=== PATIENT | female | born 1980 | race Caucasian/White ===

== ENCOUNTER 2016-04-21 12:22 | Emergency (ER) | payer MEDICAID, MEDICARE ==
[~2016-04-21] VITALS: Ht 152.4 cm; Wt 63.5 kg
[2016-04-21 14:04] VITALS: BP 125/71
--- NOTE | 2016-04-21 14:08 | PHYS DOC ---
Past Medical History Past Medical History: Other Additional Past Medical Histor: "hole in heart" Past Surgical History: , Hysterectomy, Tubal ligation, Other Additional Past Surgical Histo: ACL and meniscus in left knee Alcohol Use: Occasionally Drug Use: Other Adult General Chief Complaint Chief Complaint: FLU SYMPTOM HPI HPI Patient is a 36 year old female presents emergency Department stating last night she was sent home from work because she was having fever chills generalized body aches and discomfort and shaking. She states that she had vomiting and diarrhea last night although today she is not having any vomiting diarrhea or shaking. She states she still has nasal congestion and feels feverish. She states she has not taken her temperature at home. She denies flu immunizations this year. She does state that she has had sick contact with her roommate. Review of Systems Review of Systems Constitutional: subjective fever and chills Eyes: Denies change in visual acuity, redness, or eye pain [] HENT: nasal congestion denies sore throat [] Respiratory: cough denies shortness of breath [] Cardiovascular: No additional information not addressed in HPI [] GI: Denies abdominal pain, nausea, vomiting, bloody stools or diarrhea [] : Denies dysuria or hematuria [] Musculoskeletal: Denies back pain or joint pain [] Integument: Denies rash or skin lesions [] Neurologic: Denies headache, focal weakness or sensory changes [] Allergies Allergies Allergies Coded Allergies Type Severity Reaction Last Updated Verified Penicillins Allergy Intermediate Anaphylaxis 06/29/13 Yes Physical Exam Physical Exam Constitutional: Well developed, well nourished, no acute distress, non-toxic appearance. [] HENT: Normocephalic, atraumatic, bilateral external ears normal, oropharynx moist, no oral exudates, nose normal. Bilateral tympanic membranes appear to be normal throat with no postnasal drip no erythematous noted no exudate. Eyes: PERRLA, EOMI, conjunctiva normal, no discharge. [] Neck: Normal range of motion, no tenderness, supple, no stridor. [] Cardiovascular:Heart rate regular rhythm, no murmur [] Lungs & Thorax: Bilateral breath sounds clear to auscultation [] Skin: Warm, dry, no erythema, no rash. [] Back: No tenderness Extremities: No tenderness, no cyanosis, no clubbing, ROM intact, no edema. [] Neurologic: Alert and oriented X 3, normal motor function, normal sensory function, no focal deficits noted. [] Psychologic: Affect normal, judgement normal, mood normal. [] Current Patient Data Vital Signs Vital Signs Date Time Temp Pulse Resp B/P Pulse Ox O2 Delivery O2 Flow Rate FiO2 04/21/16 14:04 97.8 80 18 125/71 97 Room Air 97.8 Lab Values Laboratory Tests Test 04/21/16 14:12 Influenza Type A Antigen Negative (NEGATIVE) Influenza Type B Antigen Negative (NEGATIVE) EKG EKG [] Radiology/Procedures Radiology/Procedures [] Course & Med Decision Making Course & Med Decision Making Pertinent Labs and Imaging studies reviewed. (See chart for details) Plan fluids as well as were negative. Patient will be discharged home in stable condition. Recommended Tylenol or ibuprofen for fever chills generalized body aches and discomfort. Plenty of fluids water, propel and gatorade. Signs and symptoms to return to emergency department has been provided. Patient agrees with discharge instructions, treatment regimen and followup recommendations. [] Dragon Disclaimer Dragon Disclaimer This electronic medical record was generated, in whole or in part, using a voice recognition dictation system. Departure Departure Impression: Primary Impression: Viral infection Disposition: 01 HOME, SELF-CARE Condition: STABLE Referrals: NO PCP (PCP) Patient Instructions: Viral Infections, [id number] Additional Instructions: Home to rest Medication as prescribed Tylenol or Ibuprofen for fever, chills or generalized body aches and discomfort. Drink plenty of fluids such as water, propel, or gatorade. You may use cough medication over the counter as needed and directed by manufacture Followup with primary care provider in 5-7 days Return to emergency department as needed for signs and symptoms that become worse. NINOSKA ISAACS NP Apr 21, 2016 14:08
[2016-04-21 15:05] LABS: OBC FLU VALID
== END 2016-04-21 15:25 | disposition home or self-care (01) ==
LOC: ER 12:28
DX: B34.9 Viral infection, unspecified (principal); Z88.0 Allergy status to penicillin
CPT/HCPCS: 87804; 99284

== ENCOUNTER 2016-11-24 16:07 | Emergency (ER) | payer MEDICARE ==
[~2016-11-24] VITALS: Ht 144.8 cm; Wt 68.0 kg
[2016-11-24] MEDS ORDERED: ASPIRIN CHEWABLE 81 MG TABLET. PO ONE (16:45)
--- NOTE | 2016-11-24 16:47 | PHYS DOC ---
Past Medical History Past Medical History: Other Additional Past Medical Histor: Congenital heart defect Past Surgical History: , Hysterectomy, Tubal ligation, Other Additional Past Surgical Histo: ACL and meniscus in left knee, open heart for congenital defect Alcohol Use: Rarely Drug Use: None Adult General Chief Complaint Chief Complaint: CHEST WALL PAIN HPI HPI Patient is a 36 year old F who presents with chest pain. Patient states this morning she developed some central chest pain nonradiating sharp in nature. Patient went to emergency room however the wait was too long therefore came to [facility]. Patient only previous cardiac history was a surgery done at 5 years old to fix of VSD. Patient has a history of using crack cocaine, smoking history, takes no medications for high blood pressure or diabetes or high cholesterol. Patient does not take any control. Patient has no history of a DVT or PE. Patient states her pain in the emergency room is 6 out of 10. Patient states the pain is not worse with exertion. Review of Systems Review of Systems GEN: Denies fevers, chills, sweats HEENT: Denies blurred vision, sore throat CV: chest pain RESP: Denies shortness of air, cough GI: Denies n/v/d NEURO: Denies confusion, dizziness MSK: Denies weakness, joint pain/swelling Current Medications Current Medications Current Medications Medications (Trade) Dose Ordered Sig/Bandar Start Time Stop Time Status Last Admin Dose Admin Aspirin (Children'S Aspirin) 324 mg 1X ONCE 11/24/16 16:45 11/24/16 16:46 DC 11/24/16 16:44 324 MG Allergies Allergies Allergies Coded Allergies Type Severity Reaction Last Updated Verified Penicillins Allergy Intermediate Anaphylaxis 06/29/13 Yes Physical Exam Physical Exam GEN.: No apparent distress. Alert and oriented. HEENT: Head is normocephalic, atraumatic NECK: Supple. LUNGS: CTAB. HEART: RRR, S1, S2 present. Peripheral pulses intact ABDOMEN: Soft, nontender. Positive bowel sounds. EXTREMITIES: Without any cyanosis. NEUROLOGIC: Normal speech, normal tone PSYCHIATRIC: Normal affect, normal mood. SKIN: No ulcerations Current Patient Data Vital Signs Vital Signs Date Time Temp Pulse Resp B/P (MAP) Pulse Ox O2 Delivery O2 Flow Rate FiO2 11/24/16 17:16 80 19 115/63 (80) Room Air 11/24/16 16:46 96 11/24/16 16:19 98.1 98.1 Lab Values Laboratory Tests Test 11/24/16 16:47 White Blood Count 11.0 x10^3/uL (4.0-11.0) Red Blood Count 4.60 x10^6/uL (3.50-5.40) Hemoglobin 14.6 g/dL (12.0-15.5) Hematocrit 42.7 % (36.0-47.0) Mean Corpuscular Volume 93 fL (79-100) Mean Corpuscular Hemoglobin 32 pg (25-35) Mean Corpuscular Hemoglobin Concent 34 g/dL (31-37) Red Cell Distribution Width 12.9 % (11.5-14.5) Platelet Count 162 x10^3/uL (140-400) Neutrophils (%) (Auto) 61 % (31-73) Lymphocytes (%) (Auto) 32 % (24-48) Monocytes (%) (Auto) 5 % (0-9) Eosinophils (%) (Auto) 1 % (0-3) Basophils (%) (Auto) 1 % (0-3) Neutrophils # (Auto) 6.7 x10^3uL (1.8-7.7) Lymphocytes # (Auto) 3.5 x10^3/uL (1.0-4.8) Monocytes # (Auto) 0.6 x10^3/uL (0.0-1.1) Eosinophils # (Auto) 0.2 x10^3/uL (0.0-0.7) Basophils # (Auto) 0.1 x10^3/uL (0.0-0.2) Sodium Level 143 mmol/L (136-145) Potassium Level 3.6 mmol/L (3.5-5.1) Chloride Level 107 mmol/L (98-107) Carbon Dioxide Level 27 mmol/L (21-32) Anion Gap 9 (6-14) Blood Urea Nitrogen 17 mg/dL (7-20) Creatinine 0.7 mg/dL (0.6-1.0) Estimated GFR (Cockcroft-Gault) 94.7 BUN/Creatinine Ratio 24 (6-20) H Glucose Level 90 mg/dL (70-99) Calcium Level 9.2 mg/dL (8.5-10.1) Total Bilirubin 0.4 mg/dL (0.2-1.0) Aspartate Amino Transferase (AST) 17 U/L (15-37) Alanine Aminotransferase (ALT) 20 U/L (14-59) Alkaline Phosphatase 84 U/L (46-116) Troponin I Quantitative < 0.017 ng/mL (0.000-0.055) Total Protein 7.3 g/dL (6.4-8.2) Albumin 3.8 g/dL (3.4-5.0) Albumin/Globulin Ratio 1.1 (1.0-1.7) Laboratory Tests 11/24/16 16:47 Laboratory Tests 11/24/16 16:47 EKG EKG 1622: EKG shows normal sinus rhythm rate of 74 no STEMI[] Radiology/Procedures Radiology/Procedures Chest x-ray NAD[] Course & Med Decision Making Course & Med Decision Making Pertinent Labs and Imaging studies reviewed. (See chart for details) ED course: Patient was seen and examined emergency room cardiac workup was ordered 1816: Patient was reevaluated in the emergency room chest pain is resolved. She feels much better. Recommended short-term follow-up with PCP for an outpatient cardiac workup. Recommended stop smoking and do not use drugs. MDM: After reviewing the chart, CC/HPI/PMH, physical exam, [lab results], [ radiological results], I do not believe the patient having acute SC (Heart score =1), PE (PERC neg), and low risk for thoracic area dissection. Basic the patient 's heart score I believe she can be discharged home with outpatient workup for cardiac. Patient is stable for discharge. Additional verbal discharge instructions were provided to the patient and that if symptoms get worse or any new symptoms arise that are worrisome to the patient she is to return to the emergency room immediately [] Dragon Disclaimer Dragon Disclaimer This electronic medical record was generated, in whole or in part, using a voice recognition dictation system. Departure Departure Impression: Primary Impression: Chest pain Disposition: 01 HOME, SELF-CARE Condition: IMPROVED Referrals: NO PCP (PCP) Patient Instructions: Chest Pain (Nonspecific), [id number] Additional Instructions: Please follow up with your family physician next one to 2 days and return if symptoms increase ANN CHUN DO Nov 24, 2016 16:47
--- NOTE | 2016-11-24 16:53 | EKG ---
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
[2016-11-24 16:54] LABS: BASO # 0.1 x10^3/uL (0.0-0.2); BASO % 1 % (0-3); EOS % 1 % (0-3); HEMATOCRIT 42.7 % (36.0-47.0); HEMOGLOBIN 14.6 g/dL (12.0-15.5); LYMPH # 3.5 x10^3/uL (1.0-4.8); LYMPH % 32 % (24-48); MEAN CORPUSCULAR HEMOGLOBIN 32 pg (25-35); MEAN CORPUSCULAR HGB CONC 34 g/dL (31-37); MEAN CORPUSCULAR VOLUME 93 fL (79-100); MONO % 5 % (0-9); NEUT % 61 % (31-73); PLATELET COUNT 162 x10^3/uL (140-400); RED CELL DISTRIBUTION WIDTH 12.9 % (11.5-14.5)
--- NOTE | 2016-11-24 17:01 | RAD ---
EXAM: CHEST 2 VIEWS History: Chest pain TECHNIQUE: PA and lateral chest radiographs FINDINGS: The cardiomediastinal silhouette is within normal limits. The lungs are clear bilaterally. The costophrenic sulci are clear and well demarcated bilaterally. The osseous structures and soft tissues are unremarkable. IMPRESSION: No radiographic evidence of an acute cardiopulmonary abnormality.
[2016-11-24 17:23] LABS: CALCIUM 9.2 mg/dL (8.5-10.1); CREATININE 0.7 mg/dL (0.6-1.0); GFR 94.7; POTASSIUM 3.6 mmol/L (3.5-5.1)
[2016-11-24 17:26] LABS: ALBUMIN 3.8 g/dL (3.4-5.0); ALBUMIN/GLOBULIN RATIO 1.1 (1.0-1.7); TOTAL BILIRUBIN 0.4 mg/dL (0.2-1.0); TOTAL PROTEIN 7.3 g/dL (6.4-8.2)
[2016-11-24 18:15] VITALS: BP 121/70
== END 2016-11-24 18:40 | disposition home or self-care (01) ==
LOC: ER 16:07
DX: R07.89 Other chest pain (principal); Z87.891 Personal history of nicotine dependence; Z90.710 Acquired absence of both cervix and uterus; Z98.51 Tubal ligation status; Z87.74 Personal history of (corrected) congenital malformations of heart and circulatory system; Z88.0 Allergy status to penicillin
CPT/HCPCS: 36415; 71020; 80053; 84484; 85025; 93005; 99285-25

== ENCOUNTER 2017-06-16 18:40 | Emergency (ER) | payer MEDICARE | END 2017-06-16 19:06 | disposition home or self-care (01) | LOC: ER 18:40 | DX: H66.93 Otitis media, unspecified, bilateral (principal); F17.200 Nicotine dependence, unspecified, uncomplicated; Z98.51 Tubal ligation status; Z88.0 Allergy status to penicillin; Z90.710 Acquired absence of both cervix and uterus; Z95.1 Presence of aortocoronary bypass graft | CPT/HCPCS: 99283 ==

== ENCOUNTER 2017-07-13 10:06 | Emergency (ER) | payer MEDICARE ==
[2017-07-13] MEDS ORDERED: DEXAMETHASONE SOD PHOS 4 MG/ML VIAL IM (10:45)
[2017-07-13] MEDS: DEXAMETHASONE SOD PHOS 4 MG/ML VIAL IM (11:21)
== END 2017-07-13 11:50 | disposition home or self-care (01) ==
LOC: ER 10:06
DX: L50.9 Urticaria, unspecified (principal); Z88.0 Allergy status to penicillin
CPT/HCPCS: 96372; 99283-25; J1100

== ENCOUNTER 2017-09-03 17:16 | Emergency (ER) | payer MEDICARE ==
[2017-09-03] MEDS: predniSONE 20 MG TABLET PO (18:44)
[2017-09-03] MEDS: NAPROXEN 500 MG TABLET PO (18:45)
== END 2017-09-03 18:54 | disposition home or self-care (01) ==
LOC: ER 18:54
DX: G89.29 Other chronic pain (principal); M54.42 Lumbago with sciatica, left side; Z90.710 Acquired absence of both cervix and uterus; Z98.51 Tubal ligation status; Z88.0 Allergy status to penicillin
CPT/HCPCS: 99283; J7512

== ENCOUNTER 2017-10-29 00:34 | Emergency (ER) | payer MEDICARE ==
[~2017-10-29] VITALS: Ht 142.2 cm; Wt 78.8 kg
[~2017-10-29 00:34] MED LIST: AZIT250T PO; CYCL10TA2 PO; DICL50TA4 PO; METH4TAB2 PO
[2017-10-29 00:59] VITALS: BP 125/67
--- NOTE | 2017-10-29 01:19 | PHYS DOC ---
Past Medical History Past Medical History: Depression, Immunosuppression Additional Past Medical Histor: "HOLE IN HEART AT " Past Surgical History: , Hysterectomy, Tubal ligation Additional Past Surgical Histo: OPEN HEART SX, LEFT ACL, LEFT MENISCUS Alcohol Use: Rarely Drug Use: Cocaine Social History Narrative: 15 YEARS CLEAN Adult General Chief Complaint Chief Complaint: "I'm having flulike symptoms" HPI HPI Patient presents to the emergency department for evaluation. She states that for the past 2-3 days, she has had nasal congestion, sore throat, and a left earache. She also reports having some intermittent vomiting and diarrhea. She has had some chills, but no fevers. She has not had any bloody emesis or bloody stools. She denies any chest pain. She has had a nonproductive cough. She denies any chest pain. She does have a history of congenital heart disease, but has not had any coronary disease, and is not taking any cardiac medications. She did recently start medications for depression, but is otherwise taking no medicines. She denies any abdominal pain, dizziness, lightheadedness, headache, numbness, or weakness. There are no alleviating, or exacerbating factors to her symptoms. Review of Systems Review of Systems Constitutional: Denies fever [] Eyes: Denies change in visual acuity, redness, or eye pain [] HENT: Reports nasal congestion and sore throat [] Respiratory: Denies pleuritic pain or shortness of breath [] Cardiovascular: The patient denies any shortness of breath, chest pain, palpitations, or orthopnea [] GI: Denies abdominal pain, bloody stools or bloody emesis[] : Denies dysuria or hematuria [] Musculoskeletal: Denies back pain or joint pain [] Integument: Denies rash or skin lesions [] Neurologic: Denies headache, focal weakness or sensory changes [] Endocrine: Denies polyuria or polydipsia [] All other systems were reviewed and found to be within normal limits, except as documented in this note. Allergies Allergies Allergies Coded Allergies Type Severity Reaction Last Updated Verified Penicillins Allergy Intermediate Anaphylaxis 06/29/13 Yes Physical Exam Physical Exam PHYSICAL EXAM: CONSTITUTIONAL: Well developed, well nourished HEAD: normocephalic, atraumatic EENT: PERRL, EOMI. Conjunctivae normal color, sclerae non-icteric; moist mucous membranes. Tympanic membranes are normal bilaterally. There is no mastoid tenderness. There is mild pharyngeal erythema, without any exudate. The uvula is midline. There is no edema. There is mildly tender submandibular lymphadenopathy. The larynx is nontender. NECK: Supple, non-tender; no meningismus. LUNGS: Lungs CTA, breathing even and unlabored. Normal air movement. HEART: Regular rate and rhythm, no murmur CHEST: No deformity; non-tender ABDOMEN: The abdomen is soft, and non-tender, no masses or bruits. EXTREM: Normal ROM; no deformity, no calf tenderness. Normal pulses palpable in all extremities. There is no pedal edema. SKIN: No rash; no diaphoresis NEURO: Alert; normal speech and cognition; CN's grossly intact; strength grossly intact without focal deficit. BACK: No CVA TTP. Current Patient Data Vital Signs Vital Signs Date Time Temp Pulse Resp B/P (MAP) Pulse Ox O2 Delivery O2 Flow Rate FiO2 10/29/18 00:59 98.7 99 22 125/67 (86) 98 Room Air 98.7 EKG EKG [] Radiology/Procedures Radiology/Procedures [] Course & Med Decision Making Course & Med Decision Making Bedside rapid strep is negative.[] 1:35 AM:Patient remains stable. I discussed test results, the need for close follow-up, use of [id number] analgesics, and return precautions Dragon Disclaimer Dragon Disclaimer This electronic medical record was generated, in whole or in part, using a voice recognition dictation system. Departure Departure Impression: Primary Impression: Upper respiratory infection Additional Impression: Viral syndrome Disposition: 01 HOME, SELF-CARE Condition: STABLE Referrals: NO PCP (PCP) Patient Instructions: Upper Respiratory Infection, Adult, Viral Syndrome Additional Instructions: Use the provided resources to establish care with a primary care provider Problem Qualifiers ABENA ELY MD Oct 29, 2017 01:19
== END 2017-10-29 01:40 | disposition home or self-care (01) ==
LOC: ER 00:34
DX: J06.9 Acute upper respiratory infection, unspecified (principal); B34.9 Viral infection, unspecified; H92.02 Otalgia, left ear; R11.10 Vomiting, unspecified; R19.7 Diarrhea, unspecified; Z98.890 Other specified postprocedural states; Z88.0 Allergy status to penicillin
CPT/HCPCS: 87070; 87880; 99283

== ENCOUNTER 2018-01-07 23:51 | Emergency (ER) | payer MEDICARE ==
[~2018-01-07] VITALS: Ht 165.1 cm; Wt 78.5 kg
[2018-01-08 00:04] VITALS: BP 123/80
[2018-01-08] MEDS ORDERED: CYCL10TA2 PO (00:37)
[2018-01-08] MEDS ORDERED: DICL50TA4 PO (00:37)
[2018-01-08] MEDS ORDERED: METH4TAB2 PO (00:37)
--- NOTE | 2018-01-08 00:37 | PHYS DOC ---
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 Denies any numbness or tingling to bilateral lower extremities. Denies any loss of bowel bladder function. She states she has been following up with her own PCP for chronic low back pain. She states she is currently free of illegal drug use and does not want any narcotics for her pain. Review of Systems Review of Systems Constitutional: Denies fever or chills [] GI: Denies abdominal pain, nausea, vomiting, bloody stools or diarrhea [] : Denies dysuria or hematuria [] Musculoskeletal: Reports low back pain Integument: Denies rash or skin lesions [] Neurologic: Denies headache, focal weakness or sensory changes [] All other systems were reviewed and found to be within normal limits, except as documented in this note. Current Medications Current Medications Current Medications Medications (Trade) Dose Ordered Sig/Bandar Start Time Stop Time Status Last Admin Dose Admin Cyclobenzaprine HCl (Flexeril) 10 mg 1X ONCE 01/08/18 01:00 01/08/18 01:01 Naproxen (Naprosyn) 500 mg 1X ONCE 01/08/18 01:00 01/08/18 01:01 Prednisone (Prednisone) 50 mg 1X ONCE 01/08/18 01:00 01/08/18 01:01 Allergies Allergies Allergies Coded Allergies Type Severity Reaction Last Updated Verified Penicillins Allergy Intermediate Anaphylaxis 06/29/13 Yes Physical Exam Physical Exam Constitutional: Well developed, well nourished, no acute distress, non-toxic appearance. [] Abdomen: Bowel sounds normal, soft, no tenderness, no masses, no pulsatile masses. [] Skin: Warm, dry, no erythema, no rash. [] Back: Slight tenderness on palpation of the left SI joint, no midline lumbar spine tenderness, no CVA tenderness. Positive straight leg raise at approximately 40 to the left side. Extremities: No tenderness, no cyanosis, no clubbing, ROM intact, no edema. [] Neurologic: Alert and oriented X 3, normal motor function, normal sensory function, no focal deficits noted. [] Psychologic: Affect normal, judgement normal, mood normal. [] EKG EKG [] Radiology/Procedures Radiology/Procedures [] Course & Med Decision Making Course & Med Decision Making Pertinent Labs and Imaging studies reviewed. (See chart for details) This is a 37-year-old female patient presenting to the ED today with pain consistent with sciatica. Patient was discharged with diclofenac, cyclobenzaprine, Medrol Dosepak. Heat recommended to the lumbar spine. Follow- up with PCP as well as pain clinic doctor provided a soon as she can. She does not have any cauda equina syndrome symptoms. She has known history of low back pain as well as DJD. Dragon Disclaimer Dragon Disclaimer This electronic medical record was generated, in whole or in part, using a voice recognition dictation system. Departure Departure Impression: Primary Impression: Chronic sciatica of left side Disposition: HOME, SELF-CARE Condition: STABLE Referrals: NO PCP (PCP) BULL HELLER MD follow up in the course of this week or next week Patient Instructions: Sciatica, [id number] Additional Instructions: You were evaluated in the emergency room with pain suspicious of sciatica. Take the prescribed medications as ordered. Apply heat to your low back as well as the affected areas. Elevate the affected extremity as tolerated. Follow-up with your primary care doctor as well as the pain clinic doctor provided in the course of this week or next week. Scripts Cyclobenzaprine Hcl (CYCLOBENZAPRINE HCL) 10 Mg Tablet 1 TAB PO TID, #30 TAB Prov: JULIAEvelynKEVIN JAXSON 01/08/18 Diclofenac Sodium (DICLOFENAC SODIUM) 50 Mg Tablet.dr 1 TAB PO BID, #60 TAB 1 Refill Prov: KEVIN BECERRA JAXSON 01/08/18 Methylprednisolone (MEDROL) 4 Mg Tab.ds.pk 1 PKG PO UD, #1 PKG Prov: HERNANKEVIN HEALTH RECORD TECHNICIAN 01/08/18 JADEMARILEEKEVIN PURI Jan 08, 2018 00:37
[2018-01-08] MEDS ORDERED: CYCLOBENZAPRINE 10 MG TABLET. PO ONE (01:00)
[2018-01-08] MEDS ORDERED: predniSONE 20 MG TABLET PO ONE (01:00)
[2018-01-08] MEDS ORDERED: NAPROXEN 500 MG TABLET PO ONE (01:00)
== END 2018-01-08 00:52 | disposition home or self-care (01) ==
LOC: ER 23:51
DX: G89.29 Other chronic pain (principal); M54.42 Lumbago with sciatica, left side; M25.552 Pain in left hip; M79.605 Pain in left leg; Z90.710 Acquired absence of both cervix and uterus; Z98.51 Tubal ligation status; Z88.0 Allergy status to penicillin
CPT/HCPCS: 99284; J7512

== ENCOUNTER 2019-04-30 16:27 | Emergency (ER) | payer MEDICARE ==
[~2019-04-30] VITALS: Ht 147.3 cm; Wt 72.7 kg
[2019-04-30 16:55] VITALS: BP 124/72
--- NOTE | 2019-04-30 17:00 | PHYS DOC ---
Past Medical History Past Medical History: Arthritis, Depression, Immunosuppression, Sciatica Additional Past Medical Histor: "HOLE IN HEART AT " Past Surgical History: , Hysterectomy, Tubal ligation Additional Past Surgical Histo: OPEN HEART SX, LEFT ACL, LEFT MENISCUS Smoking Status: Current Every Day Smoker Alcohol Use: Rarely Drug Use: Cocaine Adult General Chief Complaint Chief Complaint: RIB PAIN [facility] HPI Patient is a 39 year old female who presents to the ED today complaining of mild to moderate left anterior rib pain that began today after she fell. 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 Patient denies any loss of consciousness. Reports pain on deep breaths. Describes the pain as sharp and intermittent. Review of Systems Review of Systems Constitutional: Denies fever or chills [] Eyes: Denies change in visual acuity, redness, or eye pain [] HENT: Denies nasal congestion or sore throat [] Respiratory: Reports left anterior rib pain. Denies cough or shortness of breath [] Cardiovascular: No additional information not addressed in HPI [] GI: Denies abdominal pain, nausea, vomiting, bloody stools or diarrhea [] : Denies dysuria or hematuria [] Musculoskeletal: Denies back pain or joint pain [] Integument: Denies rash or skin lesions [] Neurologic: Denies headache, focal weakness or sensory changes [] All other systems were reviewed and found to be within normal limits, except as documented in this note. Allergies Allergies Allergies Coded Allergies Type Severity Reaction Last Updated Verified Penicillins Allergy Intermediate Anaphylaxis 06/29/13 Yes Physical Exam Physical Exam Constitutional: Well developed, well nourished, no acute distress, non-toxic appearance. [] HENT: Normocephalic, atraumatic, bilateral external ears normal, oropharynx moist, no oral exudates, nose normal. [] Eyes: PERRLA, EOMI, conjunctiva normal, no discharge. [] Neck: Normal range of motion, no tenderness, supple, no stridor. [] Cardiovascular:Heart rate regular rhythm, no murmur [] Lungs & Thorax: Chest area with no obvious deformity, no bruising. Tenderness on palpation of the left anterior ribs approximately ribs 5 through 7 mid clavicular line. Bilateral breath sounds clear to auscultation [] Abdomen: Bowel sounds normal, soft, no tenderness, no masses, no pulsatile masses. [] Skin: Warm, dry, no erythema, no rash. [] Back: No tenderness, no CVA tenderness. [] Extremities: No tenderness, no cyanosis, no clubbing, ROM intact, no edema. [] Neurologic: Alert and oriented X 3, normal motor function, normal sensory function, no focal deficits noted. [] Psychologic: Affect normal, judgement normal, mood normal. [] Current Patient Data Vital Signs Vital Signs Date Time Temp Pulse Resp B/P (MAP) Pulse Ox O2 Delivery O2 Flow Rate FiO2 04/30/19 16:55 98.3 82 16 124/72 (89) 97 Room Air 98.3 EKG EKG [] Radiology/Procedures Radiology/Procedures [] Course & Med Decision Making Course & Med Decision Making Pertinent Labs and Imaging studies reviewed. (See chart for details) This is a 39-year-old female patient presenting to the ED today with left rib pain after falling. Left rib x-rays including PA chest interpreted by Dr. Oneal are negative for fx of any acute findings. Discharged to home. Encouraged patient to take deep breaths OTC pain relievers. Ice elevation. Follow-up with PCP in 1-2 weeks Triston Disclaimer Triston Disclaimer This electronic medical record was generated, in whole or in part, using a voice recognition dictation system. Departure Departure Impression: Primary Impression: Contusion of rib on left side Additional Impression: Fall Disposition: HOME, SELF-CARE Condition: STABLE Referrals: NO PCP (PCP) Follow-up with your doctor in 1-2 weeks Patient Instructions: Contusion, [id number] Additional Instructions: You have left rib contusion. Try to ice and elevate the area. Take deep breaths 10 times every hour while awake. Follow-up with your own doctor in 1-2 weeks. You can take [id number] remedies. Problem Qualifiers Primary Impression: Contusion of rib on left side Encounter type: initial encounter Qualified Codes: S20.212A - Contusion of left front wall of thorax, initial encounter Additional Impression: Fall Encounter type: initial encounter Qualified Codes: W19.XXXA - Unspecified fall, initial encounter KEVIN BECERRA [employer]IR[employer] WORKER Apr 30, 2019 17:00
--- NOTE | 2019-04-30 17:45 | RAD ---
Ribs left with PA chest History: Pain PA view of the chest and dedicated views of the left ribs were obtained. The heart and pulmonary vessels appear normal. There are linear opacities in the lower lungs. There are median sternotomy wires. The visualized osseous structures appear intact. Impression: 1. Bilateral infiltrates could be discoid atelectasis or pneumonia. 2. No evidence of a rib fracture. Electronically signed by: Fan Salomon III, MD (04/30/2019 5:42 PM) [id number]
== END 2019-04-30 18:04 | disposition home or self-care (01) ==
LOC: ER 16:27
DX: S20.212A Contusion of left front wall of thorax, initial encounter (principal); M19.90 Unspecified osteoarthritis, unspecified site; F32.9 Major depressive disorder, single episode, unspecified; F17.200 Nicotine dependence, unspecified, uncomplicated; Z98.51 Tubal ligation status; Z90.710 Acquired absence of both cervix and uterus; Z98.890 Other specified postprocedural states; Z88.0 Allergy status to penicillin; W01.190A Fall on same level from slipping, tripping and stumbling with subsequent striking against furniture, initial encounter; Y93.89 Activity, other specified; Y92.512 Supermarket, store or market as the place of occurrence of the external cause; Y99.8 Other external cause status
CPT/HCPCS: 71101; 99283

== ENCOUNTER 2019-09-15 13:33 | Emergency (ER) | payer MEDICARE ==
[~2019-09-15] VITALS: Ht 149.9 cm; Wt 81.8 kg
[2019-09-15] MEDS ORDERED: DOXY100T PO (14:34)
[2019-09-15] MEDS ORDERED: ALBU2.5V8 IH (14:34)
--- NOTE | 2019-09-15 14:46 | PHYS DOC ---
Past Medical History Past Medical History: Arthritis, Depression, Immunosuppression, Sciatica Additional Past Medical Histor: "HOLE IN HEART AT " Past Surgical History: , Hysterectomy, Tubal ligation Additional Past Surgical Histo: OPEN HEART SX, LEFT ACL, LEFT MENISCUS Smoking Status: Current Every Day Smoker Alcohol Use: None Drug Use: Cocaine General Adult EDM: Chief Complaint: COUGH HPI: HPI: Patient is a 39 year old female presenting with cough runny nose sore throat no fever just feels tired some body aches really does not smell very well. Onset a couple days ago her uncle was sick with bronchitis apparently he did not have COVID but she is not 100% sure. Past medical history patient is a smoker. Frequent ER visits for several different types of issues. Review of Systems: Review of Systems: Constitutional: Denies fever or chills. [] Eyes: Denies change in visual acuity. [] Neurologic: Denies headache, focal weakness or sensory changes. [] Endocrine: Denies polyuria or polydipsia. [] Lymphatic: Denies swollen glands. [] Psychiatric: Denies depression or anxiety. [] Heart Score: Risk Factors: Risk Factors: DM, Current or recent (<one month) smoker, HTN, HLP, family history of CAD, obesity. Risk Scores: Score 0 - 3: 2.5% MACE over next 6 weeks - Discharge Home Score 4 - 6: 20.3% MACE over next 6 weeks - Admit for Clinical Observation Score 7 - 10: 72.7% MACE over next 6 weeks - Early Invasive Strategies Allergies: Allergies: Allergies Coded Allergies Type Severity Reaction Last Updated Verified Penicillins Allergy Intermediate Anaphylaxis 06/29/13 Yes Physical Exam: PE: Constitutional: Well developed, well nourished, no acute distress, non-toxic appearance. [] HENT: Normocephalic, atraumatic, bilateral external ears normal, oropharynx moist, no oral exudates, nose normal. [] Mild lymphadenopathy of the anterior neck Lungs & Thorax: No respiratory stress of any kind speaking full senses no accessory muscle use. No audible wheezing noted Abdomen: Bowel sounds normal, soft, no tenderness, no masses, no pulsatile masses. [] Skin: Warm, dry, no erythema, no rash. [] Back: No tenderness, no CVA tenderness. [] Extremities: No tenderness, no cyanosis, no clubbing, ROM intact, no edema. [] Neurologic: Alert and oriented X 3, normal motor function, normal sensory function, no focal deficits noted. [] Psychologic: Affect normal, judgement normal, mood normal. [] Current Patient Data: Vital Signs: Vital Signs Date Time Temp Pulse Resp B/P (MAP) Pulse Ox O2 Delivery O2 Flow Rate FiO2 09/15/19 13:45 98.1 113 16 111/69 (83) 94 Room Air 98.1 EKG: EKG: [] Radiology/Procedures: Radiology/Procedures: [] Impression: Chest x-ray my interpretation was negative acute Course & Med Decision Making: Course & Med Decision Making Pertinent Labs and Imaging studies reviewed. (See chart for details) [] 39-year-old female presenting with cough runny nose sore throat recent sick contact. Chest x-ray was negative patient's well-appearing in the emergency room prescription for doxycycline and albuterol was given as patient is a smoker. We try to COVID test her she absolutely refused the swab after he was in her nose less than a centimeter according to nursing staff. I did give her strict precautions to maintain social distancing and mask and assume that she may have this disease process. Full PPE was used throughout. Patient is normal saturation other than smoking I think appears stable for discharge home Dragon Disclaimer: Triston Disclaimer: This electronic medical record was generated, in whole or in part, using a voice recognition dictation system. Departure Departure Impression: Primary Impression: Bronchitis Disposition: HOME, SELF-CARE Condition: STABLE Patient Instructions: Bronchitis, Tcga-ta-Nvra Scripts Albuterol Sulfate (Proair Hfa) 8.5 Gm Hfa.aer.ad 2 PUFF IH PRN Q4-6HRS PRN for wheezing for 21 Days, #1 INHALER 0 Refills Prov: AMERICO HDEZ MD 09/15/19 Doxycycline Hyclate (DOXYCYCLINE HYCLATE) 100 Mg Tablet 1 TAB PO BID, #14 TAB Prov: AMERICO HDEZ MD 09/15/19 Justicifation of Admission Dx: Justifications for Admission: Justification of Admission Dx: N/A AMERICO HDEZ MD Sep 15, 2019 14:45
--- NOTE | 2019-09-15 14:46 | RAD ---
Single view of the chest. 09/15/2019 2:10 PM Indication: Reason: cough / Spl. Instructions: / History: Comparison: Chest radiograph April 30, 2019 Findings: There is no focal consolidation. There is no pleural effusion or pneumothorax. The cardiomediastinal silhouette and pulmonary vasculature are within normal limits. No acute osseous abnormalities are seen. Impression: No evidence of acute cardiopulmonary process. Electronically signed by: Hever Sood MD (09/15/2019 2:43 PM) [id number]
[2019-09-15 14:52] VITALS: BP 121/77
== END 2019-09-15 15:15 | disposition home or self-care (01) ==
LOC: ER 13:33
DX: J40 Bronchitis, not specified as acute or chronic (principal); F17.200 Nicotine dependence, unspecified, uncomplicated; Z88.0 Allergy status to penicillin
CPT/HCPCS: 71045; 99283

== ENCOUNTER 2020-11-16 16:27 | Emergency (ER) | payer MEDICARE ==
[~2020-11-16 16:27] MED LIST changes: +ALBU2.5V8 IH; +DOXY100T PO
== END 2020-11-16 20:40 | disposition left against medical advice (07) ==
LOC: ER 16:27
DX: R10.9 Unspecified abdominal pain (principal); Z53.21 Procedure and treatment not carried out due to patient leaving prior to being seen by health care provider